=== PATIENT | male | born 1960 | race Caucasian/White ===

== ENCOUNTER 2019-02-27 09:47 | Emergency (ER) | payer MEDICAID ==
[~2019-02-27] VITALS: Ht 172.7 cm; Wt 100.0 kg
[2019-02-27 09:57] VITALS: BP 105/61
[2019-02-27] MEDS ORDERED: PERM60CR19 TP (10:14)
== END 2019-02-27 10:49 | disposition home or self-care (01) ==
LOC: ER 09:47
DX: R21 Rash and other nonspecific skin eruption (principal); L29.9 Pruritus, unspecified; L53.9 Erythematous condition, unspecified; G89.29 Other chronic pain; Z79.899 Other long term (current) drug therapy
CPT/HCPCS: 99282